=== PATIENT | female | born 1950 | race Caucasian/White ===

== ENCOUNTER 2018-11-14 16:26 | Emergency (ER) | payer MEDICARE, BC ==
--- NOTE | 2018-11-14 17:03 | ED Physician Chart ---
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 she now complains of left area pain, right lower abdominal pain, right knee and ankle pain. she a history of seizures, arthritis and two heart attacks Allergies:: Allergies Allergy/AdvReac Type Severity Reaction Status Date / Time codeine Allergy Verified 11/14/18 16:36 duloxetine Allergy Verified 11/14/18 16:37 ezogabine [From Potiga] Allergy Verified 11/14/18 16:38 Vitals:: Vital Signs - 8 hr 11/14/18 16:38 Temp 97.1 F HR 73 RR 16 BP 135/70 O2 Sat % 99 Historian:: Patient Review:: Nurse's Note Reviewed ED Review of Systems - Review of Systems General/Constitutional: No fever, No chills, No weight loss, Weakness, No diaphoresis, No edema, No loss of appetite, Other (this patient cannot give a review of systems) Skin: No skin lesions, No rash, No bruising Head: No headache, No light-headedness Eyes: No loss of vision, No pain, No diplopia ENT: No earache, No nasal drainage, No sore throat, No tinnitus Neck: No neck pain, No swelling, No thyromegaly, No stiffness, No mass noted Cardio Vascular: No chest pain, No palpitations, No PND, No orthopnea, No edema Pulmonary: No SOB, No cough, No sputum, No wheezing GI: No nausea, No vomiting, No diarrhea, No pain, No melena, No hematochezia, No constipation, No hematemesis G/U: No dysuria, No frequency, No hematuria Musculoskeletal: Bone or joint pain (left hip, right knee, right ankle), No back pain, No muscle pain Endocrine: No polyuria, No polydipsia Psychiatric: No prior psych history, No depression, No anxiety, No suicidal ideation Hematopoietic: No bruising, No lymphadenopathy Allergic/Immuno: No urticaria, No angioedema Neurological: No syncope, No focal symptoms, No weakness, No paresthesia, No headache, No seizure, No dizziness, No confusion, No vertigo ED Past Medical History - Past Medical History Obtainable: Yes Past Medical History: CAD, Seizures, Arthritis, Dementia Family History: None Social History: Non Smoker, No Alcohol, No Drug Use Surgical History: other (left ankle surgery) Psychiatricy History: None Medication: Reviewed Family Medical History - Family Member Mother History Unknown: Yes ED Physical Exam - Physical Examination General/Constitutional: Awake, Well-developed, well-nourished, Alert, No distress, GCS 15, Non-toxic appearing, Ambulatory Other Gen/Cons comments:: she is combative and uncooperative Head: Atraumatic Eyes: Lids, conjuctiva normal, PERRL, EOMI Skin: Nl inspection, No rash, No skin lesions, No ecchymosis, Well hydrated, No lymphadenopathy ENMT: External ears, nose nl, Nasal exam nl, Lips, teeth, gums nl Neck: Nontender, Full ROM w/o pain, No JVD, No nuchal rigidity, No bruit, No mass, No stridor Respiratory: Nl effort/Exclusion, Clear to Auscultation, No Wheeze/Rhonchi/Rales Cardio Vascular: RRR, No murmur, gallop, rubs, NL S1 S2 GI: No tenderness/rebounding/guarding (right lower quadrant tenderness), No organomegaly, No hernia, Normal BS's, Nondistended, No mass/bruits, No McBurney tenderness : No CVA tenderness Extremities: No tenderness or effusion (there is swelling and tenderness of the left hip area, right knee, right ankle area.), Full ROM, normal strength in all extremities, No edema, Normal digits & nails Neuro/Psych: Alert/oriented, DTR's symmetric, Normal sensory exam, Normal motor strength, Judgement/insight normal, Mood normal, Normal gait, No focal deficits Misc: Normal back, No paraspinal tenderness ED Labs/Radiology/EKG Results - EKG Interpretations EKG Time:: 18:08 Rate & Rhythm: rate=76 sinus Nancy: right axis ED Assessment - Assessment General Assessment: multiple trauma ED Septic Shock - . Is Septic Shock (SBP<90, OR Lactate>4 mmol\L) present?: No - <6hrs of presentation: Vital Signs: Vital Signs - 8 hr 11/14/ 16:38 Temp 97.1 F HR 73 RR 16 BP 135/70 O2 Sat % 99
[2018-11-14 18:28] LABS: % EOSINOPHILS 2.9 % (0.0-5.0); % LYMPHOCYTES 23.2 % (20.0-50.0); % MONOCYTES 10.4 % (2.0-10.0); % NEUTROPHILS 62.5 % (40.0-80.0); BASOPHILE ABSOLUTE 0.1 Th/cumm (0-0.2); EOSINOPHILE ABSOLUTE 0.2 Th/cmm (0.1-0.4); HEMATOCRIT 29.6 % (41.0-60); HEMOGLOBIN 9.7 gm/dL (12-16); LYMPHOCYTE ABSOLUTE 1.4 Th/cmm (1.5-3.0); MEAN CELL VOLUME 86.7 fl (81-100); MEAN CORPUSCULAR HEMOGLOBIN 28.3 pg (27.0-31.0); MEAN CORPUSCULAR HGB CONC 32.7 pg (28.0-36.0); MEAN PLATELET VOLUME 8.4 fl; MONOCYTE ABSOLUTE 0.6 Th/cmm (0.3-1.0); NEUTROPHILE ABSOLUTE 3.8 Th/cmm (1.8-8.0); PLATELET COUNT 270 Th/cmm (150-400); RED BLOOD COUNT 3.41 Mil/cmm (3.80-5.20); RED CELL DISTRIBUTION WIDTH 13.6 % (11.5-20.0); WHITE BLOOD COUNT 6.1 Th/cmm (4.8-10.8)
[2018-11-14 18:39] LABS: INR 0.98 (0.5-1.4); PROTHROMBIN TIME (TEST) 10.2 SECONDS (9.5-11.5)
[2018-11-14 18:44] LABS: ALB/GLOB RATIO 1.3 (1.0-1.8); ALBUMIN 3.9 gm/dL (3.7-5.3); ALKALINE PHOSPHATASE 76 U/L (34-104); BILIRUBIN,TOTAL 0.3 mg/dL (0.3-1.0); BUN - UREA NITROGEN 19 mg/dL (7-25); CARBON DIOXIDE 19.9 mEq/L (21.0-31.0); CHLORIDE 110 mEq/L (98-107); CREATININE - SERUM 1.1 mg/dL (0.6-1.2); GFR AFRICAN-AMERICAN > 60.0 ml/min (>90); GFR NON AFRICAN-AMERICAN 52.3 ml/min; GLUCOSE 90 mg/dL (70-105); POTASSIUM SERUM 3.9 mEq/L (3.5-5.1); SGOT 13 U/L (13-39); SGPT/ALT 8 U/L (7-52); SODIUM SERUM 138 mEq/L (136-145); TOTAL PROTEIN,SERUM 6.9 gm/dL (6.0-8.3)
--- NOTE | 2018-11-15 08:10 | Diagnostic Imaging Report ---
CT scan of the brain without intravenous contrast HISTORY: Headache, trauma Total DLP equals 567 CTDI equals 31.4 Axial sections were obtained from the base of the skull to the vertex. There is prominence/enlargement of the ventricular system size. Associated enlargement of cerebral sulci and subarachnoid cisterns. Findings are consistent with changes of generalized cerebral atrophy. No acute parenchymal abnormalities. No acute cerebral hemorrhage. Hypodensity is seen within the supratentorial white matter regions without mass effect. The findings may be associated with chronic small vessel ischemic disease. Small hypodense focus noted in the right basal ganglia region. Small foci also noted in the left basal ganglia region without mass effect. Changes are consistent with old lacunar infarcts. No extra-axial masses or abnormal fluid collections. IMPRESSION: 1. No acute abnormalities 2. Cerebral atrophy 3. Supratentorial white matter changes that may reflect chronic small vessel ischemic disease 4. Findings consistent with old bilateral basal ganglia lacunar infarcts.
--- NOTE | 2018-11-15 08:13 | Diagnostic Imaging Report ---
CT scan abdomen and pelvis without intravenous contrast HISTORY: Pain, trauma Total DLP equals 523 CTDI equals 10.0 Axial sections were obtained from the xiphoid process down to the pubic symphysis. The liver exhibits a homogeneous parenchyma. No focal lesions. The spleen appears normal. There is a moderately distended fluid/debris filled stomach. Significance should be correlated clinically. No definite focal abnormality seen within the pancreas. No focal renal lesions. No hydronephrosis. Mildly dilated left renal pelvis which may be related to an extrarenal location. Atherosclerotic calcifications within the aorta. Evaluation the pelvis limited due to artifact associated with a right hip arthroplasty. No abnormal masses or abnormal fluid collections. Mildly distended urinary bladder. Scoliosis and severe degenerative changes seen throughout the spine. IMPRESSION: 1. Mildly distended left renal pelvis which appears to be related to an extrarenal location. The finding should be correlated clinically 2. Mildly distended stool-filled large bowel 3. Moderately distended fluid/debris filled stomach. Significance should be correlated clinically. 4. Atherosclerotic vascular changes 5. Scoliosis and severe degenerative changes within the spine 6. Right hip arthroplasty
--- NOTE | 2018-11-15 08:15 | Diagnostic Imaging Report ---
CT scan left ankle HISTORY: Pain, trauma There is an approximate 5 mm calcific density noted adjacent to the posterior medial aspect of the calcaneus. No donor site is seen. The finding appears chronic. No other definite acute bony abnormalities. Joint spaces appear normal. IMPRESSION: 1. Small calcific density adjacent to the posterior medial aspect of the calcaneus. This appears chronic. Clinical correlation is needed. 2. No other definite acute abnormalities. In the presence of recent trauma and persistent symptoms, a repeat radiograph in 5-7 days may be helpful for detection of a subtle or occult fracture.
--- NOTE | 2018-11-15 08:19 | Diagnostic Imaging Report ---
CT scan left knee HISTORY: Pain, trauma Total DLP equals 182 CTDI equals 7.9 Axial sections were obtained through the right knee. Additional coronal and sagittal reformatted images are provided. No acute bony abnormalities. No fractures. Mild lateral joint space narrowing. IMPRESSION: No acute abnormalities
--- NOTE | 2018-11-15 08:30 | Diagnostic Imaging Report ---
Portable chest x-ray History: Pain, trauma Allowing for portable technique the heart size is normal. No focal pulmonary parenchymal processes. No hilar or mediastinal abnormalities. Impression: No acute abnormalities.
== END 2018-11-14 19:59 | disposition home or self-care (01) ==
LOC: ER 16:26
DX: R10.31 Right lower quadrant pain (principal); M25.561 Pain in right knee; M25.571 Pain in right ankle and joints of right foot; M25.552 Pain in left hip; M25.461 Effusion, right knee; M25.471 Effusion, right ankle; M25.452 Effusion, left hip; I25.10 Atherosclerotic heart disease of native coronary artery without angina pectoris; M19.90 Unspecified osteoarthritis, unspecified site; F03.90 Unspecified dementia, unspecified severity, without behavioral disturbance, psychotic disturbance, mood disturbance, and anxiety; Z88.5 Allergy status to narcotic agent; Z88.8 Allergy status to other drugs, medicaments and biological substances
CPT/HCPCS: 99284; 96372; 93005; 71045; 70450; 73700 ×2; 74176; 84484; 36415; 85025; 85610; 85730; 80053; 87040 ×2; J1885